=== PATIENT | female | born 1985 | race African-American/Black ===

== ENCOUNTER 2016-08-12 09:46 | Emergency (ER) | payer OTHER, BC ==
[~2016-08-12] VITALS: Ht 172.7 cm; Wt 87.3 kg
[2016-08-12 09:51] VITALS: BP 131/69; TEMP 98.1
[2016-08-12] MEDS ORDERED: PRENATAL (09:54)
[2016-08-12 11:01] VITALS: PULSE 64
== END 2016-08-12 11:02 | disposition home or self-care (01) ==
LOC: COL.ER 09:46
DX: O9A.212 Injury, poisoning and certain other consequences of external causes complicating pregnancy, second trimester (principal); S00.81XA Abrasion of other part of head, initial encounter; S09.90XA Unspecified injury of head, initial encounter; Z3A.16 16 weeks gestation of pregnancy; V43.52XA Car driver injured in collision with other type car in traffic accident, initial encounter; Y92.410 Unspecified street and highway as the place of occurrence of the external cause; R40.2412 Glasgow coma scale score 13-15, at arrival to emergency department

== ENCOUNTER 2017-02-02 19:00 | Inpatient (IN) | payer BC ==
[~2017-02-02] VITALS: Ht 172.7 cm; Wt 100.0 kg
[~2017-02-02 19:00] MED LIST: PRENATAL
[2017-02-02 22:16] LABS: BASO % 0.1 % (0.0-2.0); EOS % 0.3 % (0-4.0); GRAN # 5.2 (1.4-6.5); GRAN % 67.2 % (42.2-75.2); HEMATOCRIT 37.2 % (37.0-47.0); HEMOGLOBIN 12.9 g/dl (12.5-16.0); LYMPH # 1.6 (1.2-3.4); LYMPH % 21.4 % (20.0-51.0); MEAN CELL VOLUME 91 fl (80.0-100.0); MEAN CORPUSCULAR HEMOGLOBIN 32 pg (27.0-31.0); MEAN CORPUSCULAR HGB CONC 35 g/dl (33.0-37.0); MEAN PLATELET VOLUME 11.7 fl (7.4-10.4); MONO # 0.8 (0.1-0.6); MONO % 9.8 % (1.7-9.3); PLATELET COUNT 215 K/mm3 (130-400); RED BLOOD COUNT 4.09 M/mm3 (4.10-5.30); WHITE BLOOD COUNT 7.7 K/mm3 (4.8-10.8)
[2017-02-02 22:34] VITALS: BP 145/93; PULSE 81; TEMP 97.4
[2017-02-03] VITALS (30 sets, daily range): BP systolic 129–159; BP diastolic 65–104; PULSE 67–117; TEMP 97.5–98.6
[2017-02-04 05:40] VITALS: BP 121/79; PULSE 83; TEMP 97.8
[2017-02-04 09:46] VITALS: BP 134/76; PULSE 70; TEMP 97.6
[2017-02-04 16:12] VITALS: BP 122/88; PULSE 81; TEMP 97.7
[2017-02-04 20:50] VITALS: BP 140/82; PULSE 70; TEMP 98.3
[2017-02-05 00:50] VITALS: BP 131/83; PULSE 68
[2017-02-05 06:40] VITALS: BP 135/81; PULSE 84; TEMP 97.8
[2017-02-05] MEDS ORDERED: PERCOCET 325 MG1 TA2 PO (07:30)
[2017-02-05] MEDS ORDERED: IBU800 M1 PO (07:30)
== END 2017-02-05 10:30 | disposition home or self-care (01) | DRG 775 ==
LOC: OB 19:00 → LDR 19:00 → OB 02-03 11:30
PROVIDERS: Obstetrics & Gynecology
PROC: 10E0XZZ Delivery of Products of Conception, External Approach (ICD-10-PCS; principal; 2017-02-03)
DX: O48.0 Post-term pregnancy (principal); O69.81X0 Labor and delivery complicated by cord around neck, without compression, not applicable or unspecified; O99.824 Streptococcus B carrier state complicating childbirth; O77.0 Labor and delivery complicated by meconium in amniotic fluid; Z3A.40 40 weeks gestation of pregnancy; Z37.0 Single live birth
CPT/HCPCS: J0595; J2540; J2590; J7120

== ENCOUNTER 2020-07-28 07:12 | Inpatient (IN) | payer OTHER ==
[2020-07-28] VITALS (34 sets, daily range): BP systolic 122–180; BP diastolic 69–106; PULSE 59–100; TEMP 98.1–98.9
[~2020-07-28] VITALS: Ht 172.7 cm; Wt 104.1 kg
[~2020-07-28 07:12] MED LIST changes: +CALCIUM CARBON650 M2; +IBU800 M1 PO; +MAGNESIUM ELEME30 MG PO; +PERCOCET 325 MG1 TA2 PO; +UNISOM25 MG PO; +VITAMIN B-625 MG; +VITAMIN D3400 I1 PO
[2020-07-28 08:38] LABS: BASO % 0.2 % (0.0-2.0); EOS # 0.1 (0.0-0.7); EOS % 0.8 % (0-4.0); GRAN # 4.2 (1.4-6.5); GRAN % 63.8 % (42.2-75.2); HEMATOCRIT 37.7 % (37.0-47.0); HEMOGLOBIN 12.6 g/dl (12.5-16.0); LYMPH # 1.6 (1.2-3.4); LYMPH % 25.2 % (20.0-51.0); MEAN CELL VOLUME 92 fl (80.0-100.0); MEAN CORPUSCULAR HEMOGLOBIN 31 pg (27.0-31.0); MEAN CORPUSCULAR HGB CONC 33 g/dl (33.0-37.0); MEAN PLATELET VOLUME 11.2 fl (7.4-10.4); MONO # 0.6 (0.1-0.6); MONO % 8.9 % (1.7-9.3); PLATELET COUNT 228 K/mm3 (130-400); REDCELL DISTRIBUTION WIDTH-CV 14.2 % (11.5-14.5)
--- NOTE | 2020-07-28 09:50 | NUR ---
0715 - Pt and spouse arrive ambulatory to unit for scheduled induction of labor. Pt changes into gown, EFM explained and placed. VS taken. Pt denies leaking of fluid, vaginal bleeding, and contractions. Pt reports good movement. IV started in LH, labs drawn, LR started per orders. Assessment complete, consents discussed and signed. Plan discussed, copy placed on pt and baby's chart. Questions asked and answered, pt denies further needs at this time. 0800 - Dr. Rutherford to pt bedside. SVE per provider /-3. AROM at this time, clear fluid noted. Pt repositioned self for comfort. Pitocin started per induction protocol at this time. 09 - Pt swabbed for COVID.
--- NOTE | 2020-07-28 16:05 | NUR ---
1405 - Pt reports increasing rectal pressure, and states she "feels like there's no break between contractions". Contractions difficult to trace over last 15 minutes due to maternal movement and positioning. Tracing between 1356 and 1405 appears tachysystolic. SVE 8/90/0. Pt continues moving and positioning self for comfort. FHR remains Cat 1. 1415 - Contraction tracing from 1410 to 1415 continues to appear tachysystolic. Pitocin decreased to 8mu/ml/hr. Fluid bolus started. FHR remains Cat 1. 1427 - Pt reports rectal pressure more continuous and intense. SVE 8-9/90/0. 1500 - Pt returns from bathroom, states she felt like she needed to push while sitting on toilet. SVE 10/100/+1. Dr. Rutherford on unit and notified. 1502 - Dr. Rutherford to pt bedside. Deanne Curran RN of nursery notified and called to bedside, Patrick Newton RN to bedside. Pt repositioned for delivery. 1503 - Pt starts pushing with contractions, RN and physician at bedside. 1507 - Male delivered spontaneously by Dr. Rutherford. Infant placed on mother's abdomen where dried and stimulated. Cord clamped by Dr. Rutherford and cut by Deanne Curran RN of nursery. Care of infant transferred to Deanne Curran RN of nursery. Cord blood collected. 1513 - Placent delivered by Dr. Rutherford. Fundal massage provided, pitocin started per protocol. Repair of midline episiotomy and 2nd degree laceration perfromed by Dr. Rutherford. Pericare provided, ice pack placed. Pt repositioned for comfort. Pt denies further needs at this time.
[2020-07-29 04:05] VITALS: BP 149/103; PULSE 71; TEMP 98.3
[2020-07-29 08:01] VITALS: BP 131/80; PULSE 65; TEMP 97.5
[2020-07-29] MEDS ORDERED: IBU800 M1 PO (11:06)
[2020-07-29 11:41] VITALS: BP 115/59; PULSE 72
[2020-07-29 13:43] VITALS: BP 122/72; PULSE 60
[2020-07-29 16:00] VITALS: BP 127/80; PULSE 60; TEMP 98.2
== END 2020-07-29 17:30 | disposition home or self-care (01) | DRG 807 ==
LOC: LDR 07:12 → OB 18:25
PROVIDERS: ADMIT Obstetrics & Gynecology
PROC: 10E0XZZ Delivery of Products of Conception, External Approach (ICD-10-PCS; principal; 2020-07-28)
PROC: 0KQM0ZZ Repair Perineum Muscle, Open Approach (ICD-10-PCS; 2020-07-28)
PROC: 10907ZC Drainage of Amniotic Fluid, Therapeutic from Products of Conception, Via Natural or Artificial Opening (ICD-10-PCS; 2020-07-28)
DX: O48.0 Post-term pregnancy (principal); Z37.0 Single live birth; O99.824 Streptococcus B carrier state complicating childbirth; O77.0 Labor and delivery complicated by meconium in amniotic fluid; O70.1 Second degree perineal laceration during delivery; Z3A.41 41 weeks gestation of pregnancy
CPT/HCPCS: J2540; J2590; J7120